=== PATIENT | female | born 1930 | race African-American/Black ===

== ENCOUNTER 2018-01-04 21:09 | Emergency (ER) | payer OTHER, MEDICARE ==
[~2018-01-04] VITALS: Ht 160 cm; Wt 38.1 kg
[~2018-01-04 21:09] MED LIST: ADVAIR 250-501 EACH INH; ALBUTEROL2.5 MG/31 INH; ASPIRIN81 M2 PO; AZITHROMYCIN 2250 MG PO; CEFTIN 250 MG250 MG PO; CEPACOL SORE T1 EAC9 PO; DUONEB 2.5-0.5 M3 ML INH; FERROUS SULFAT325 M1 PO; IRON 21/7 TABL1 EACH PO; IRON325 PO; LEVAQUIN 500 M500 MG PO; LEVAQUIN PO; LOPRESSOR25 PO; METOPROLOL SUCC25 M1 PO; MOM PO; MUCINEX TA600 MG/TA1 PO; NORCO 5-325 TA1 EACH PO; NORVASC10 MG PO; PREDNISONE 10 M10 MG; PREDNISONE 20 M20 M1 PO; PREDNISONE 20 M20 MG PO; VALSARTAN-HCTZ1 EAC1 PO; VALSARTAN-HCTZ1 EAC2 PO; XOPENEX HF1 UDINHALE INH
[2018-01-04 22:22] VITALS: BP 141/60
== END 2018-01-04 22:23 | disposition home or self-care (01) ==
LOC: ER 21:09
DX: R04.0 Epistaxis (principal); I10 Essential (primary) hypertension; J43.9 Emphysema, unspecified; I67.1 Cerebral aneurysm, nonruptured; Z87.891 Personal history of nicotine dependence; Z87.01 Personal history of pneumonia (recurrent); Z88.8 Allergy status to other drugs, medicaments and biological substances

== ENCOUNTER 2018-06-06 11:11 | Inpatient (IN) | payer OTHER, MEDICARE ==
[~2018-06-06] VITALS: Ht 160 cm; Wt 37.6 kg
--- NOTE | ~2018-06-06 | D ---
[facility] [place] [address] DISCHARGE SUMMARY Name: CHAD DE LOS SANTOS Room #: 460-P [facility] IN M.R.#: [id number] Admission: 06/06/18 ������������������ Attend Phys: Familia Navarrete MD Discharge: 06/13/18 ������������������ Date of : 32 Report #: [id number] THIS REPORT FOR: //name// CC: Familia Navarrete DATE OF SERVICE: 06/13/2018 FINAL DIAGNOSES: 1. Chronic obstructive pulmonary disease exacerbation. 2. Hypertension. 3. Microcytic anemia. HOSPITAL COURSE: The patient was admitted with shortness of breath. She was treated for COPD exacerbation. X-rays did not show an infiltrate. She received nebulizer treatments, steroids, inhaled steroids and antibiotics. Screen for MRSA was negative. Blood pressure medicine was altered and adjusted accordingly. She was treated with physical therapy. She had a slow improvement during her stay with continued bronchospasm, wheezing and nonproductive congested cough. Gradually over the last 2-3 hospital days, she showed improvement. The wheezing diminished and her cough diminished. She was being screened for home oxygen. PHYSICAL EXAMINATION: GENERAL: On the day of discharge, she was awake and alert. VITAL SIGNS: Stable. LUNGS: Distant, but clear with no wheezing. HEART: Had regular sounds. ABDOMEN: Soft. Normoactive bowel sounds. EXTREMITIES: Showed no edema. LABORATORY DATA: Heme check of stool was negative x 1. DISPOSITION: She is discharged to home with regular diet and activity as tolerated, home health. Follow up with Dr. Recinos in 1-2 weeks. She will have Levaquin for 5 more days, prednisone burst and taper, albuterol nebulizer treatment q.i.d., Advair twice a day, Xopenex inhaler p.r.n. She is to stop losartan and amlodipine and just switch to metoprolol 50 mg twice a day. ��������������������������������������������� ���������������������������������������� By: ��������������������������������������������� 1321 [id number] Parviz Bateman MD /nt
[2018-06-06 11:12] VITALS: BP 106/44
[2018-06-06 11:55] LABS: ABSOLUTE NEUTROPHILS 4.7 thou/uL (1.4-8.2); BASOPHILS 1.3 % (0.0-2.0); EOSINOPHILS 2.3 % (0.0-3.0); HEMATOCRIT 31.9 % (37.0-47.0); HEMOGLOBIN 10.7 gm/dL (12.0-15.0); LYMPHOCYTES 10.5 % (24.0-44.0); MCH 24.9 pg (26.0-34.0); MCHC 33.7 g/dL (28.0-37.0); MCV 73.9 fL (80.0-100.0); PLATELET COUNT 307 thou/uL (150-400); POLYS 78.9 % (36.0-66.0); RBC 4.32 mil/uL (4.20-5.00); WBC 5.9 thou/uL (4.0-11.0)
[2018-06-06 12:07] LABS: ANION GAP 8 mmol/L (7-16); BUN 24 mg/dL (7-18); CALCIUM 10.1 mg/dL (8.5-10.1); CHLORIDE 96 mmol/L (98-107); CO2 31 mmol/L (21-32); CREATININE 1.3 mg/dL (0.6-1.0); GLUCOSE 139 mg/dL (74-106); POTASSIUM 4.6 mmol/L (3.5-5.1); SODIUM 135 mmol/L (136-145)
[2018-06-06 12:17] LABS: ALBUMIN 3.8 g/dL (3.4-5.0); SGOT 18 U/L (15-37); SGPT 19 U/L (30-65); TOTAL BILIRUBIN 0.5 mg/dL (<0.1-1.0); TOTAL PROTEIN 7.7 g/dL (6.4-8.2); TROPONIN-I <0.06 ng/mL (<0.06)
[2018-06-06] MEDS ORDERED: ADVAIR HFA 230M12 GM INH (13:09)
[2018-06-06] MEDS ORDERED: XOPENEX HFA15 GM INH (13:10)
[2018-06-06] MEDS ORDERED: LOSARTAN-HCTZ1 EACH PO (13:12)
[2018-06-06] MEDS ORDERED: ADVAIR 250-501 EACH INH (14:14)
--- NOTE | 2018-06-06 14:14 | EKG ---
[address] [address] ELECTROCARDIOGRAM REPORT Name: CHAD DE LOS SANTOS Room #: 170-8 ADM IN M.R.#: [id number] ������������������ Admission: 06/06/18 ������������������ Attend Phys: Familia Navarrete MD Discharge: ������������������ Date of : 32 Report #: [id number] ����������������������������������������������������������������� [id number] THIS REPORT FOR: //name// [facility] ED Test Date: 2018-06-06 Test Time: 11:44:03 Pat Name: CHAD DE LOS SANTOS Department: Room: 170 Gender: F Drapery Examiner: KKODIZZY : 1930 Requested By: Melany Terrell Order Number: [id number] MD: Jarred Nunez Measurements Intervals [place] Rate: 78 P: 87 RI: 118 QRS: 46 QRSD: 79 T: 55 QT: 361 QTc: 412 Interpretive Statements Sinus rhythm Borderline short RI interval RSR' in V1 or V2, right VCD or RVH Compared to ECG 04/18/2016 16:29:48 Right ventricular hypertrophy now present RSR' in V1 or V2 now present Electronically Signed On 06-06-2018 14:14:33 CDT by Jarred Nunez [email or web address] ��������������������������������������������� <ELECTRONICALLY SIGNED> ���������������������������������������� By: Jarred Nunez MD ��������������������������������������������� 06/06/18 1414 1144 1144 Jarred Nunez MD /EPI
[2018-06-06 16:38] VITALS: BP 103/45
[2018-06-06 17:03] VITALS: BP 110/50
--- NOTE | 2018-06-06 19:32 | NUR ---
Received pt from the ER, alert and oriented x 4 with a 2L of O2 via NC. Pt came up with a packed meal and tolerated diet well. Pt did mention that she cannot swallow pills and requested that all medication be crushed and placed in apple sauce. Pt also mentioned that in her last admission here, she was prescribed to have Boost drink in her diet. Admitted pt to the floor, kept comfortable, endorsed to the night nurse.
[2018-06-06 19:36] VITALS: BP 119/47
[2018-06-07 04:39] VITALS: BP 121/51
--- NOTE | 2018-06-07 05:29 | NUR ---
Assumed care at 1845. Pt resting in bed. Requested to have breathing treatments scheduled prn. O2 changed from 2L to 3L by RT. Pt denies pain. Has been having none productive cough. Denies chest pain. No identified needs at the moment. Call light within reach. Will continue to monitor.
[2018-06-07 07:58] VITALS: BP 134/48
--- NOTE | 2018-06-07 09:27 | H ---
[facility] [place] [address] HISTORY AND PHYSICAL Name: CHAD DE LOS SANTOS Room #: 460-P ADM IN M.R.#: [id number] Admission: 06/06/18 ������������������ Attend Phys: Familia Navarrete MD Discharge: ������������������ Date of : 32 Report #: [id number] THIS REPORT FOR: //name// CC: Familia Navarrete DATE OF SERVICE: 06/06/2018 CHIEF COMPLAINT: Shortness of breath. HISTORY OF PRESENT ILLNESS: The patient is an 88-year-old female with a history of COPD, came to the Emergency Room with shortness of breath. Symptoms have been progressing over the last 3-4 days with a congested cough. Today, she was having difficulty breathing and was more short of breath than even yesterday. She was mildly hypoxic on the time of presentation and mildly tachypneic. She denies any fever or chills. 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 PAST SURGICAL HISTORY: None. FAMILY HISTORY: Noncontributory. SOCIAL HISTORY: A [id number] history of smoking, but she quit several years ago. She is and lives with her at home. ALLERGIES: PHENOBARBITAL. MEDICATIONS: Lopressor 50 mg, iron, amlodipine 10 mg, Xopenex inhaler p.r.n., aspirin 81 mg, Advair 2 puffs b.i.d., Hyzaar 50/12.5 mg daily. REVIEW OF SYSTEMS: Denies fever, chills, chest pain, abdominal pain, nausea, vomiting, diarrhea, constipation, dysuria, syncope. OBJECTIVE: VITAL SIGNS: Temperature 36.3, pulse 93, respirations 19, blood pressure 106/44, O2 sat 93% on 2 liters. GENERAL: She is awake and alert, eating. She recognizes me. No distress. HEAD AND NECK: Unremarkable. LUNGS: Have expiratory rhonchi and wheezes, especially on the left. She is tachypneic. HEART: Regular, no murmur. ABDOMEN: Soft, normoactive bowel sounds. EXTREMITIES: No edema. NEUROLOGIC: Cranial nerves intact, alert and oriented x 4. [facility] [address] [address] HISTORY AND PHYSICAL Name: CHAD DE LOS SANTOS Room #: [address] [place] [address] IN ..#: [id number] Admission: 06/06/18 ������������������ Attend Phys: Familia Navarrete MD Discharge: ������������������ Date of : 32 Report #: [id number] LAB AND X-RAY: Reviewed. ASSESSMENT: 1. Chronic obstructive pulmonary disease exacerbation. 2. Hypertension. 3. Microcytic anemia. PLAN: Steroids, nebulized treatments and empiric antibiotics with mucolytics. Resume her usual home medications. Sequential compression devices for deep venous thrombosis prophylaxis. ��������������������������������������������� <ELECTRONICALLY SIGNED> ���������������������������������������� By: Parviz Bateman MD ��������������������������������������������� 06/07/18 0927 1347 1411 Parviz Bateman MD /sharri
[2018-06-07 14:17] VITALS: BP 121/44
--- NOTE | 2018-06-07 14:22 | NUR ---
PT ADMITTED RELATED TO COPD EXACERBATION. CM REVIEWED CART AND SPOKE WITH CARE TEAM. CM MET WITH PT AT BEDSIDE THIS DAY. PT IS A&O X4, CM ROLE INTRODUCED. PT INDICATED SHE LIVES IN A SENIOR APARTMENT WITH ELAVATOR ACCESS. PT INDICATED SHE HAS BEEN INDEPENDENT WITH GAIT AND ADLS EMERGENCY DEPARTMENT. PT INDICATED SHE HAD HH TWO YEARS AGO. PT INDICATED NO DME HISTORY. PT INDICATED SHE PLANS TO RETURN HOME ONCE MEDICALLY STABLE. CM TO FOLLOW INDICATED WITH DC PLANNING.
--- NOTE | 2018-06-07 17:03 | NUR ---
Assumed pt care this am with 3L of O2 via NC. Pt requested RT several times through out the day, pt had a strong non-productive cough. All medication needed to be crushed and mixed with her apple sauce. Fluid intake was encouranged through out the day. Pt is able to transfer from the bed to the commode with ease. Pt walked the halls slowly with a walker. Seen by Dr. Keys, 2 inhalers from home resumed, pt request this be at bedside since these are prn medication. POC followed.
[2018-06-07 19:45] VITALS: BP 139/45
[2018-06-08 03:35] VITALS: BP 125/43
--- NOTE | 2018-06-08 04:06 | NUR ---
PT DEMANDED IV TO COME OUT IV REMOVED NEW IV PUT IN PT RECIEVED 2 BREATHING TX DURING THE NIGHT PT USED CALL LIGHT EFFECTIVELY.
[2018-06-08 05:59] LABS: CALCIUM 8.8 mg/dL (8.5-10.1); CREATININE 1.5 mg/dL (0.6-1.0); POTASSIUM 4.4 mmol/L (3.5-5.1)
[2018-06-08 08:02] VITALS: BP 141/47
[2018-06-08 13:37] VITALS: BP 109/47
--- NOTE | 2018-06-08 18:49 | NUR ---
PT A&OX4, VSS, NO PAIN, NO SIGNS OF DISTRESS. NO C/O N/V/D, LUNGS CLEAR THIS AM, RECEIVING BX TX AND INHALER. FALL RISK PRECAUTIONS IN PLACE, WILL CONTINUE TO MONITOR.
[2018-06-08 19:37] VITALS: BP 126/48
[2018-06-08 23:08] VITALS: BP 179/69
--- NOTE | 2018-06-09 02:20 | NUR ---
PT AGITATED WITH THE STAFF AND ANGRY PT REFUSES TO VERBALIZE REASONS PT SLEPT MOST OF THE NIGHT AND DIDNT HAVE ANY COMPLAINTS OF PAIN.
[2018-06-09 04:56] VITALS: BP 135/54
[2018-06-09 07:27] VITALS: BP 142/57
[2018-06-09 13:44] VITALS: BP 162/72
--- NOTE | 2018-06-09 18:36 | NUR ---
PT A&OX4, VSS, DENIES PAIN. NO SIGNS OF DISTRESS, PT HAS RECEIVED BX TX Q4. PT HAS BEEN ASSISTED WITH PT AND OT. FALL PRECAUTIONS IN PLACE, WILL CONTINUE TO MONITOR.
[2018-06-09 20:10] VITALS: BP 150/66
[2018-06-10 04:55] LABS: HEMATOCRIT 27.8 % (37.0-47.0); HEMOGLOBIN 9.1 gm/dL (12.0-15.0); MCH 24.7 pg (26.0-34.0); MCHC 32.9 g/dL (28.0-37.0); RBC 3.7 mil/uL (4.20-5.00); RDW 17.8 % (10.5-14.5); WBC 12.1 thou/uL (4.0-11.0)
[2018-06-10 04:57] VITALS: BP 141/53
[2018-06-10 05:10] LABS: CALCIUM 8.9 mg/dL (8.5-10.1); CREATININE 1.2 mg/dL (0.6-1.0); POTASSIUM 4.2 mmol/L (3.5-5.1)
--- NOTE | 2018-06-10 05:31 | NUR ---
PROGRESS PT A/O X 4. VERY PLEASANT AND COOPERATIVE, HAS A FREQUENT STRONG COUGH SCANT AMOUNT OF SECRETIONS COUGHED UP. REMAINS ON 2 LITERS OF O2, LUNGS COARSE AND DIMINISHED IN BASES. UP WITH 1 TO BSC, GETS SOA WITH SMALL AMOUNTS OF ACTIVITY CONTINUE TO MONITOR.
[2018-06-10 08:01] VITALS: BP 148/56
--- NOTE | 2018-06-10 08:57 | NUR ---
ASSUMED CARE OF PT APPROX 0715, A&0X4, USES CALL LIGHT FOR NEEDS, DOES NOT USE ASSISTIVE DEVICE FOR AMBULATION. BED ALARM ON NONETHELESS, DENIES ANY PAIN, EVEN GENERALIZED. GOOD APPETITE. RA AT HOME, USING 1L CURRENTLY SATTING AT 98%, SPOKE WITH HER ABOUT REMOVING AND CHECKING SATS, SHE STATES PT DOES THAT WITH HER. ENCORUAGED HER TO USE CALL LIGHT FOR ANY NEEDS
[2018-06-10 14:36] VITALS: BP 125/47
--- NOTE | 2018-06-10 17:09 | NUR ---
IT PT IS MEDICALLY STABLE TO DC OVER THE WEEKEMD FAX REFERRAL TO [facility] AT . IF PT NEEDS HOME O2 CALL ROXY AT FAX ORDERS AND SCRIPT TO .
[2018-06-10 19:59] VITALS: BP 142/60
--- NOTE | 2018-06-11 02:50 | NUR ---
PROGRESS PT A/O X4, UP AD BRITTANY VOIDING QS, NO BM THIS SHIFT AWAITING STOOL SAMPLE. COUGH IS STILL FREQUENT AND NON PRODUCTIVE, LUNGS CLEAR BUT DIMINISHED. WEARING 2 LITERS O2 AT ALL TIMES. RT TREATMENTS CONTINUE. POSSIBLE DC HOME TOMORROW.
[2018-06-11 03:58] VITALS: BP 167/68
[2018-06-11 04:47] LABS: HEMATOCRIT 28.9 % (37.0-47.0); HEMOGLOBIN 9.6 gm/dL (12.0-15.0); MCH 24.9 pg (26.0-34.0); MCHC 33.1 g/dL (28.0-37.0); MCV 75.3 fL (80.0-100.0); RBC 3.84 mil/uL (4.20-5.00); RDW 17.6 % (10.5-14.5); WBC 13.1 thou/uL (4.0-11.0)
[2018-06-11 04:59] LABS: CALCIUM 8.7 mg/dL (8.5-10.1); CREATININE 1.3 mg/dL (0.6-1.0); POTASSIUM 4.6 mmol/L (3.5-5.1)
--- NOTE | 2018-06-11 06:32 | NUR ---
PATIENT SLEPT PART OF THE NIGHT. PATENT WAS ALERT AND ORIENTED X4. MEDS ARE CRISHED AND GIVEN WITH APPLESAUCE. PATIENT DOES NOT REQUIRE O2 PER RT BUT HAS IT ON FOR ACTIVITY. NO CURRNT COMPLAINTS OR CONCERNS. PATIENT IS PROGRESSING TOWARDS DC GOALS.
[2018-06-11 07:32] VITALS: BP 141/55
[2018-06-11 08:08] VITALS: BP 147/70
[2018-06-11 15:41] VITALS: BP 130/62
--- NOTE | 2018-06-11 19:31 | NUR ---
Assumed care of patient at 0700. Patient resting in bed, denies shortness of air or pain. Does have a very harsh cough, unable to produce much sputum. Incontinent with coughing. Started on SSI for blood sugar control. Had frustrations with nursing care, she is eager to be discharged. Remains on 2L NC. Continue to monitor.
[2018-06-11 19:32] VITALS: BP 141/55
[2018-06-12 04:35] VITALS: BP 137/49
[2018-06-12 04:56] LABS: HEMATOCRIT 29.8 % (37.0-47.0); HEMOGLOBIN 9.6 gm/dL (12.0-15.0); MCH 24.5 pg (26.0-34.0); MCHC 32.3 g/dL (28.0-37.0); MCV 75.7 fL (80.0-100.0); RBC 3.94 mil/uL (4.20-5.00); RDW 17.3 % (10.5-14.5); WBC 16.9 thou/uL (4.0-11.0)
[2018-06-12 05:14] LABS: CALCIUM 8.9 mg/dL (8.5-10.1); CREATININE 1.2 mg/dL (0.6-1.0); POTASSIUM 4.8 mmol/L (3.5-5.1)
--- NOTE | 2018-06-12 06:16 | NUR ---
PATIENT IS ALERT AND ORIENTED X 4. PATIENT WAS ABLE TO GET SOME SLEEP THIS SHIFT. BREATHING TREATMENT AND O2 VIA NASAL CANNULA CONTINUED. PT HAS SOME STRESS INCONTINENCE WITH COUGH. PT'S COUGH IS STILL PERSISTENT, AND COUGH IS NOT PROSUCTIVE. PATIENT IS PROGRESSING TOWARDS DISCHARGE GOALS.
[2018-06-12 07:13] VITALS: BP 126/61
[2018-06-12 13:46] VITALS: BP 146/57
--- NOTE | 2018-06-12 17:09 | NUR ---
Received awake on bed. Due medications given as prescribed, on regular nebulizations. With SL at right forearm. With oxygen at 2lpm via nc. On blood sugar monitoring, pre-breakfast- 175mg/dl, 3 units given, pre-lunch- 174mg/dl, 3 units given, pre-dinner- 232mg/dl, 4 units given. For exercise oximetry, RT informed, no discharge plans yet but will do it; Patient put on room air by RT. Able to use bedside commode with standby assist, opened bowels today. Visited by relatives today. Alert and oriented x 4. On heart monitor. With non productive cough, on regular nebulizations.
--- NOTE | 2018-06-12 18:05 | NUR ---
Day shift Nursing notes- Blood sugar of 232 pre-dinner, 4 units insulin given as prescribed. Patient had snacks prior as verbalized before I administered the insulin.
[2018-06-12 20:10] VITALS: BP 143/46
--- NOTE | 2018-06-13 04:18 | NUR ---
PATIENT IS ALERT AND ORIENTED X4. PATIENT WAS ABLE TO GET COMFORTABLE AND SLEEP PART OF THE SHIFT. PT STILL HAS A NON PRODUCTIVE COUGH. PT HAS SOME STRESS INCOTINENCE WITH HER COUGHS. PATIENT HAS GOOD O2 SATURATION ON ROOM AIR SO NC O2 WAS DISCONTINUED BY RT. PATIENT IS PROGRESSING TOWARDS DISCHARGE GOALS.
[2018-06-13 08:00] VITALS: BP 143/50
--- NOTE | 2018-06-13 11:47 | NUR ---
Nutrition: Seen for F/U. Pt reports appetite is good with 80-100% intake. Current wt 95 lbs, may be slightly inaccurate but up from 06/06 wt of 83 lbs. On carb controlled diet, BG 152-232. No hx of diabetes, on methylprednisolone. Requested Ensure x3 daily. Will order Ensure x2 daily plus glucerna x1 daily due to elevated BG. Food preferences taken. Low nutrition risk.
[2018-06-13] MEDS ORDERED: LEVAQUIN 500 M500 M2 PO (12:34)
[2018-06-13] MEDS ORDERED: PREDNISONE 20 M20 MG PO (12:35)
[2018-06-13] MEDS ORDERED: LOPRESSOR25 PO (12:36)
[2018-06-13] MEDS ORDERED: IPRAT-ALBUT 0.5-3 ML INH (12:37)
[2018-06-13 14:02] VITALS: BP 143/50
[2018-06-13 15:00] VITALS: BP 147/43
--- NOTE | 2018-06-13 17:05 | NUR ---
PT TO DISCHARGE HOME THIS DAY WITH [facility] PT, OT, AND NURSE. PT DIDN'T QUALIFY FOR HOME O2. A NEBULIZER WAS ORDRED FOR PT THROUGH [facility] AND IT WILL BE DELIVERED TO HER HOME UPON DC. NO OTHER CM INTERVENTION INDICATED AT THIS TIME. CASE CLOSED.
[2018-06-13 17:07] VITALS: BP 143/50
[2018-06-13 21:05] LABS: ADENOVIRUS Negative (Negative); INFLUENZA A Negative (Negative); INFLUENZA B Negative (Negative); METAPNEUMOVIRUS Negative (Negative); PARAINFLUENZA 1 Negative (Negative); PARAINFLUENZA 2 Negative (Negative); PARAINFLUENZA 3 Negative (Negative); RHINOVIRUS Positive (Negative); RSV A Negative (Negative); RSV B Negative (Negative)
== END 2018-06-13 18:23 | disposition home health service (06) | DRG 190 ==
LOC: ER 11:11 → EROBS 13:41 → 4W 13:41 → ENTRNSPT 06-13 17:03 → 4W 06-13 18:23
PROVIDERS: Internal Medicine Geriatric Medicine; Nurse Practitioner Family; ADMIT Internal Medicine
DX: J44.1 Chronic obstructive pulmonary disease with (acute) exacerbation (principal); E43 Unspecified severe protein-calorie malnutrition; Z68.1 Body mass index [BMI] 19.9 or less, adult; D50.9 Iron deficiency anemia, unspecified; I10 Essential (primary) hypertension; Z88.8 Allergy status to other drugs, medicaments and biological substances; Z87.891 Personal history of nicotine dependence; Z79.2 Long term (current) use of antibiotics; Z79.899 Other long term (current) drug therapy
CPT/HCPCS: 10045

== ENCOUNTER 2018-08-28 11:42 | Inpatient (IN) | payer OTHER, MEDICARE ==
[~2018-08-28] VITALS: Ht 160 cm; Wt 40.8 kg
--- NOTE | ~2018-08-28 | H ---
[facility] [place] [address] HISTORY AND PHYSICAL Name: CHAD DE LOS SANTOS Room #: 213-P ADM IN M.R.#: [id number] Admission: 08/28/18 ������������������ Attend Phys: Familia Navarrete MD Discharge: ������������������ Date of : 32 Report #: [id number] THIS REPORT FOR: //name// CC: Familia Navarrete DATE OF SERVICE: 08/28/2018 HISTORY OF PRESENT ILLNESS: An 88-year-old female with COPD and shortness of breath. HISTORY OF PRESENT ILLNESS: This patient has become more congested over the last couple of days with no fevers, chills or sweats, but just increasing shortness of breath and presented to the Emergency Room and had little infiltrate on chest x-ray and with her history of COPD was subsequently admitted. PAST MEDICAL HISTORY: Noteworthy for hypertension. She has a history of a cerebral aneurysm with coiling. Previously, she has chronic anemia, takes iron. Underlying hypertension. MEDICATIONS: List includes ferrous sulfate, aspirin, metoprolol, Advair. ALLERGIES: She has no known allergies. FAMILY HISTORY: Noncontributory. SOCIAL HISTORY: She is still functional. No smoking or alcohol intake. REVIEW OF SYSTEMS: No specific cardiac, GI, or complaints. PHYSICAL EXAMINATION: GENERAL: Shows her in no distress. She is lying in bed with O2 in place. Able to give me an accurate history. HEENT: Otherwise, negative. NECK: Supple, without thyromegaly or adenopathy. CHEST: Coarse with minimal expiratory wheezing. CARDIOVASCULAR: Showed a regular rhythm without murmur. ABDOMEN: Soft and nontender, without hepatosplenomegaly. EXTREMITIES: Negative. LABORATORY PARAMETERS: Reviewed. ASSESSMENT: This is an 88-year-old female with acute exacerbation of chronic obstructive pulmonary disease, probably mostly on the basis of bronchitis, possibly an early pneumonia, but certainly no signs of toxicity. [facility] [address] [place] [address] HISTORY AND PHYSICAL Name: CHAD DE LOS SANTOS Room #: 213-[facility]#: [id number] Admission: 08/28/18 ������������������ Attend Phys: Familia Navarrete MD Discharge: ������������������ Date of : 32 Report #: [id number] PLAN: We will start bronchodilators, prednisone and Rocephin and hopefully she can improve in the next day or two. ��������������������������������������������� ���������������������������������������� By: ��������������������������������������������� 1205 1213 Jose Maria Amaya MD /nt
[~2018-08-28 11:42] MED LIST changes: +ADVAIR HFA 230M12 GM INH; +IPRAT-ALBUT 0.5-3 ML INH; +LEVAQUIN 500 M500 M2 PO; +LOSARTAN-HCTZ1 EACH PO; +XOPENEX HFA15 GM INH
[2018-08-28 11:46] VITALS: BP 142/67
[2018-08-28 16:06] LABS: ABSOLUTE NEUTROPHILS 10.7 thou/uL (1.4-8.2); BASOPHILS 0.5 % (0.0-2.0); EOSINOPHILS 1.2 % (0.0-3.0); HEMATOCRIT 30.5 % (37.0-47.0); HEMOGLOBIN 9.9 gm/dL (12.0-15.0); LYMPHOCYTES 11.1 % (24.0-44.0); MCH 25.2 pg (26.0-34.0); MCHC 32.3 g/dL (28.0-37.0); MCV 78.1 fL (80.0-100.0); MONOCYTES 9.4 % (1.0-8.0); PLATELET COUNT 410 thou/uL (150-400); POLYS 77.8 % (36.0-66.0); RBC 3.91 mil/uL (4.20-5.00); RDW 16.3 % (10.5-14.5); WBC 13.8 thou/uL (4.0-11.0)
[2018-08-28] MEDS ORDERED: COZAAR 25 MG TA25 M1 PO (16:49)
[2018-08-28 16:50] LABS: ANION GAP 7 mmol/L (7-16); BUN 33 mg/dL (7-18); CALCIUM 9.8 mg/dL (8.5-10.1); CHLORIDE 96 mmol/L (98-107); CO2 29 mmol/L (21-32); CREATININE 1.1 mg/dL (0.6-1.0); GLUCOSE 166 mg/dL (74-106); POTASSIUM 3.7 mmol/L (3.5-5.1); SODIUM 132 mmol/L (136-145)
[2018-08-28 17:00] LABS: ALBUMIN 2.4 g/dL (3.4-5.0); SGOT 20 U/L (15-37); SGPT 17 U/L (30-65); TOTAL BILIRUBIN 0.4 mg/dL (<0.1-1.0); TROPONIN-I <0.06 ng/mL (<0.06)
[2018-08-28 18:01] VITALS: BP 166/65
[2018-08-28 20:25] VITALS: BP 157/80
[2018-08-29 00:30] VITALS: BP 136/58
--- NOTE | 2018-08-29 03:13 | NUR ---
PT ADMITED FROM ED AROUND 1930, HERE FOR SOA AT HOME FOR ABOUT 5 DAYS-PT STATES. ASSESSMENT CHARTED. VSS. ADMISSION COMPLETE. PT REQUESTED BREATHING TREATMENTS STATED LUNGS FELT TIGHT. CALL PLACED TO PHYSICIAN FOR TREATMENTS AND TO RESTART MEDS. ORDERS GIVEN FOR BREATHING TREATMENTS PER EMAR. ABX AND FLUIDS PER EMAR. PT STEADY TO BATHROOM. PRODUCTIVE LOOSE COUGH, 2L NC. WILL CONTINUE TO MONITOR AND WITH POC.
[2018-08-29 03:57] VITALS: BP 140/71
[2018-08-29 07:26] VITALS: BP 127/56
--- NOTE | 2018-08-29 08:10 | EKG ---
[address] [place] [address] ELECTROCARDIOGRAM REPORT Name: CHAD DE LOS SANTOS Room #: 213-P ADM IN M.R.#: [id number] ������������������ Admission: 08/28/18 ������������������ Attend Phys: Familia Navarrete MD Discharge: ������������������ Date of : 32 Report #: [id number] ����������������������������������������������������������������� [id number] THIS REPORT FOR: //name// [facility] ED Test Date: 2018-08-28 Test Time: 15:27:24 Pat Name: CHAD DE LOS SANTOS Department: Room: [facility] Gender: F Oven Tender: rivka : 1930 Requested By: Amina Platt Order Number: [id number] MD: Seng Anderson Measurements Intervals [place] Rate: 102 P: 79 ND: 117 QRS: 38 QRSD: 97 T: 65 QT: 360 QTc: 469 Interpretive Statements Sinus tachycardia Atrial premature complexes Abnormal R-wave progression, early transition Borderline T abnormalities, anterior leads Compared to ECG 06/06/2018 11:44:03 Atrial premature complex(es) now present T-wave abnormality now present Electronically Signed On 08-29-2018 8:09:57 CDT by Seng Anderson [email or web address] ��������������������������������������������� <ELECTRONICALLY SIGNED> ���������������������������������������� By: Seng Anderson MD, [facility] ��������������������������������������������� 08/29/18 0809 1527 1527 Seng Anderson MD, [facility] /EPI
--- NOTE | 2018-08-29 11:03 | NUR ---
Assess due to low BMI of 15.1. Admit with SOB, hx copd. Pt states lives at home. Appetite has been good but has had reported wt loss since 11/2017 of ~30 lb unintentional. Likes to eat 6 small meals per day and uses Ensure up to 3x daily-will order. Able to voice food preferences and eager to have lunch today. Wt loss likely due to due COPD. Low nutrition risk.
[2018-08-29 11:16] VITALS: BP 140/55
--- NOTE | 2018-08-29 14:13 | NUR ---
ASSESSMENT DOCUMENTED. PT ALERT AND ORIENTED. RT TREATMENT PROVIDED ORDERED. SEEN BY DR. RILEY CASTANEDA. ORDERS NOTED. IV ABX AND PRN COUGH MEDICINE GIVEN. WILL CONTINUE TO MONITOR.
[2018-08-29 19:39] VITALS: BP 136/56
--- NOTE | 2018-08-30 03:31 | NUR ---
ASSESSMENT CHARTED. VSS. PT SOA WITH EXCERTION, PRN BREATHING TREATMENTS AND COUGH MEDS PER EMAR. 2 L NC. NO VOMITING SINCE SHIFT CHANGE, COUGH IMPROVED FROM PREVIOUS NIGHT. ST BY TO BATHROOM.SLEEPING WELL AT THIS TIME. WILL CONTINUE TO MONITOR AND WITH POC.
[2018-08-30 05:09] VITALS: BP 151/54
[2018-08-30 07:35] VITALS: BP 138/49
[2018-08-30 11:40] VITALS: BP 112/49
[2018-08-30 12:30] LABS: HEMATOCRIT 29.7 % (37.0-47.0); HEMOGLOBIN 9.8 gm/dL (12.0-15.0); MCH 25.7 pg (26.0-34.0); MCHC 33.1 g/dL (28.0-37.0); MCV 77.7 fL (80.0-100.0); PLATELET COUNT 421 thou/uL (150-400); RBC 3.82 mil/uL (4.20-5.00); RDW 16.2 % (10.5-14.5); WBC 11.8 thou/uL (4.0-11.0)
[2018-08-30 12:43] LABS: CALCIUM 8.7 mg/dL (8.5-10.1); POTASSIUM 5.4 mmol/L (3.5-5.1)
[2018-08-30 13:21] LABS: ABSOLUTE NEUTROPHILS 10.9 thou/uL (1.4-8.2); ANISOCYTOSIS 1+
[2018-08-30 15:25] VITALS: BP 114/57
--- NOTE | 2018-08-30 15:43 | NUR ---
PT ALERT AND ORIENTED. VSS. RECEIVED PRN PAIN MED FOR ABD PAIN WITH PARTIAL RELIEF. PRN COUGH MED GIVEN. SEEN BY DR. VELASCO. ORDERS NOTED. NO CONCERNS AT THIS TIME. WILL CONTINUE TO MONITOR.
[2018-08-30 21:48] VITALS: BP 148/61
[2018-08-31 03:30] VITALS: BP 142/59
--- NOTE | 2018-08-31 04:09 | NUR ---
ASSESSMENT CHARTED. VSS. PT DENIES AB PAIN, SOA, N/V, DIZZINESS. 2L NC. LUNGS CLEAR WITH FAINT WHEEZYS. SLEEPING BETTER THAN PREVIOUS NIGHT. PRODUCTIVE COUGH. WILL CONTINUE TO MONITOR AND WITH POC.
[2018-08-31 07:23] VITALS: BP 157/72
[2018-08-31 11:11] VITALS: BP 168/79
--- NOTE | 2018-08-31 16:00 | NUR ---
PT ALERT AND ORIENTED. VSS. REPORT HAVING SOME ABD DISCOMFORT. HAD LARGE BM THIS SHIFT. SEEN BY DR. VELASCO. ORDERS NOTED. WILL CONTINUE TO MONITOR.
[2018-08-31 16:19] VITALS: BP 146/65
--- NOTE | 2018-08-31 16:38 | NUR ---
met with patient who reports she resides in [facility] with elevator. She has walker/cane at home but does not use. She uses the bus for transportation. She cont to work at [employer] but not working until middle of Sep. She reports she rec HH care from [facility]. They serviced in May. patient agreeable to HH at [place] if needed. Left message for son. patient currently on oxygen but does not have at home. Therapy evals in process.
[2018-08-31 19:53] VITALS: BP 173/71
[2018-09-01] VITALS (7 sets, daily range): BP systolic 141–187; BP diastolic 54–91
--- NOTE | 2018-09-01 03:07 | NUR ---
ASSUMED PT CARE AT 1900. PT A/OX4, VITAL SIGNS STABLE, ASSESSMENT CHARTED. ABDOMINAL PAIN ADEQUATELY MANAGED WITH PAIN MEDICATION. NO COMPLAINTS OF SOB. 2L02 MAINTAINED. RESTED WELL THROUGH THE NIGHT. PROGRESSING TOWARD PLAN OF CARE. WILL CONTINUE TO MONITOR.
--- NOTE | 2018-09-01 14:51 | NUR ---
PT ALERT AND ORIENTED. HAD HIGH BP THIS AM. DR. VELASCO AWARE. ORDERS NOTED. EVALUATED BY PT AND OT. AMBUALTED X1 THIS SHIFT. REPORT FEELING MUCH BETTER. IV ABX GIVEN. WILL CONTINUE TO MONITOR.
--- NOTE | 2018-09-01 16:40 | NUR ---
[facility] notified of possible dc home tomorrow. They can accept the pt for readmission. Weaning off o2 and working with therapy today. Pt declined therapy suggestin for a FWW. Will follow.
[2018-09-02 04:34] VITALS: BP 157/63
[2018-09-02 04:55] LABS: HEMATOCRIT 32.7 % (37.0-47.0); HEMOGLOBIN 10.9 gm/dL (12.0-15.0); MCH 25.8 pg (26.0-34.0); MCHC 33.2 g/dL (28.0-37.0); MCV 77.8 fL (80.0-100.0); RBC 4.2 mil/uL (4.20-5.00); RDW 15.9 % (10.5-14.5)
[2018-09-02 05:06] LABS: POTASSIUM 4.9 mmol/L (3.5-5.1)
--- NOTE | 2018-09-02 05:14 | NUR ---
PT RESTING IN BED, APPEARS TO BE SLEEPING. PT C/O EARLY ON IN SHIFT OF STOMACH CRAMPING BUT RESOLVED WITH SOME PRN MEDICATION. PT REMAINS ON 2L NC. POSSIBLY HOME WITH HH TODAY
[2018-09-02 08:06] VITALS: BP 159/71
--- NOTE | 2018-09-02 16:26 | NUR ---
No weekend dc anticipated per the attending. [facility] notified. They are following along and can resume hh services at pr. Will follow.
--- NOTE | 2018-09-02 17:17 | NUR ---
ASSUMED ACRE @ 0700. PT ALERT AND ORIENTED. REPORT HAVING SOME STOMACH DISCOMFORT. PRN ABD PAIN MED GIVEN WITH PARTIAL RELIEF. PARTICIPATED IN PT AND OT. PLAN TO BE DISCHARGE ON MODAY WITH [facility].H. NO CONCERNS AT THIS TIME. WILL CONTINUE TO MONITOR.
[2018-09-02 20:42] VITALS: BP 137/54
--- NOTE | 2018-09-03 03:15 | NUR ---
ASSESSMENT DOCUMENTED.PT BEEN RESTING IN NO ACUTE DISTRESS.VSS.ON O2 AT 2LITERS,SATS ADEQUATE.DENIES N/V OR ABD CRAMPING.CONTINUES TO HAVE CONGESTED COUGH.ON IV ANTIBIOTIC,TOLERATING.POSSIBLE DISCHARGE ON WEDNESDAY.WILL CONT TO MONITOR PER POC.
[2018-09-03 05:29] VITALS: BP 144/49
[2018-09-03 07:14] VITALS: BP 144/62
[2018-09-03 11:17] VITALS: BP 139/75
[2018-09-03 15:04] VITALS: BP 141/58
--- NOTE | 2018-09-03 15:12 | NUR ---
VSS REAMINS NSR 80-100, LUNGS DIMINISHED, O2 SAT RA IS 94%, APPETITE GOOD TODAY, TAKING IN SUPPLEMENTS. TOLERATING THIN LIQUIDS AND MECHANICAL CHOPPED DIET, UP IN CHAIR AND TOLERATED WELL, STEADY ON FEET WITH CONTACT GUARD ASSIST. WILL CONTINUE TO MONITER AND CARE FOR PT PER PLAN OF CARE
[2018-09-03 19:57] VITALS: BP 131/58
[2018-09-04 03:58] VITALS: BP 124/64
--- NOTE | 2018-09-04 05:46 | NUR ---
RECEIVED PT'S CARE AT 1922; PT. ON BED; UPSET BECAUSE CALL LIGHT WAS NOT ANSWER ON A TIME; DURING ASSESSMENT PT. CALM; COOPERATIVE; NO C/O PAIN; GUAIFENESIN PO CHANGED TO SYRUP DUE TO NOT ABLE TO BE CRUSHED; AT MIDNIGHT PT. C/O SOB; ST. SIDDIQI OFFER PRN BREATHING TREATMENTS; NOT PRN BREATHING TREATMENT; WILL PASS ON REPORT; O2 2L APPLIED AT MIDNIGHT DUE TO 02 89% ON RA WHILE SLEEPING; ABLE TO REST THROUGH THE NIGHT WITH EYES CLOSED; ASSESSMENT CHARGED; FOLLOWING POC; MONITORING; WILL PASS ON REPORT.
[2018-09-04 07:55] VITALS: BP 138/57
[2018-09-04 11:32] VITALS: BP 128/46
--- NOTE | 2018-09-04 15:38 | NUR ---
ASSUMED CARE @ 0700. ASSESSMENT CHARTED. PT PLEASANT AND COOPERATIVE WITH CARES. STILL COUGHING. SHEDULED COUGH MEDICINE GIVEN WITH PARTIAL RELIEF. NO CARDIAC OR RESPIRATORY DISTRESS NOTED. WILL CONTINUE TO MONITOR.
[2018-09-04 16:30] VITALS: BP 118/43
[2018-09-04 19:30] VITALS: BP 125/54
[2018-09-05 04:00] VITALS: BP 150/71
[2018-09-05 04:47] LABS: HEMATOCRIT 29.5 % (37.0-47.0); HEMOGLOBIN 9.6 gm/dL (12.0-15.0); MCH 25.4 pg (26.0-34.0); MCHC 32.5 g/dL (28.0-37.0); MCV 78.2 fL (80.0-100.0); RBC 3.78 mil/uL (4.20-5.00); RDW 16.4 % (10.5-14.5); WBC 18.2 thou/uL (4.0-11.0)
[2018-09-05 04:53] LABS: CREATININE 1.1 mg/dL (0.6-1.0)
--- NOTE | 2018-09-05 05:19 | NUR ---
RECEIVED PT'S CARE AT 1928; PT. ON BED; AOX4; DURING ASSESSMENT NO C/O PAIN; REQUESTED LUNCH BOX; ST. "I AM HUMGRY"; INFORMED ABOUT MECHANICAL SOFT DIET; ST. UNDERSTANDING; ST. "I USE MY DENTURES TO EAT NOW"; HS MEDICATION GIVEN; AT [address] NOT ABLE TO SLEEP; "MAYBE BECAUSE I AM GOING HOME"; REQUESTED DECAF COFFEE; INFORMED THE HOUR; ST. "I KNOW"; COFEE GIVEN; CALLS APROPIATELY; ASSESSMENT CHARGED; FOLLOWING POC; MONITORING; WILL PASS ON REPORT.
[2018-09-05 07:45] VITALS: BP 158/53
--- NOTE | 2018-09-05 11:52 | NUR ---
Followup: appetite is good and pt enjoys the Ensure Enlive supplements. Able to state food preferences. Asking for some foods not allowed on [facility] soft diet-ST is following and defer diet order to ST. BG elevated with steroids however pt does not want to change to glucerna shake supplements. Continue Ensure Enlive for now. Wt up 2 lb. Remains low nutrition risk
[2018-09-05 12:15] VITALS: BP 150/59
--- NOTE | 2018-09-05 14:56 | NUR ---
ASSESSMENT CHARTED. PT ALERT AND ORIENTED WITH FORGETFULNESS. DENIED HAVING PAIN OR DISCOMFORT. UP IN THE CHAIR THIS SHIFT. RT TREATMENT PROVIDED ORDERED. SAT ABOVE 90% ON RA. SEEN BY DR VELASCO. NO NEW ORDERS. PLAN TO BE DISCHARGE IN AM. WILL CONTINUE TO MONITOR.
[2018-09-05 16:14] VITALS: BP 144/56
[2018-09-05 20:27] VITALS: BP 160/52
--- NOTE | 2018-09-06 04:09 | NUR ---
ASSESSMENTS CHARTED. PATIENT CURRENTLY ON ANTIBIOTICS FOR PNEUMONIA. PATIENT ON MECH. ALT DIET DUE TO POSSIBLE ASPIRATION. LUNGS ARE STILL CONGESTED. PATIENT ATE TURKEY SANDWICH LAST NIGHT THAT WAS CUT UP. SHE BELIEVES SHE IS GOING HOME TODAY.
[2018-09-06 04:36] VITALS: BP 148/75
[2018-09-06 05:48] LABS: HEMATOCRIT 31.4 % (37.0-47.0); HEMOGLOBIN 10.2 gm/dL (12.0-15.0); MCH 25.5 pg (26.0-34.0); MCHC 32.4 g/dL (28.0-37.0); MCV 78.7 fL (80.0-100.0); RBC 3.99 mil/uL (4.20-5.00); RDW 16.9 % (10.5-14.5); WBC 20.8 thou/uL (4.0-11.0)
[2018-09-06 05:52] LABS: CALCIUM 8.6 mg/dL (8.5-10.1)
[2018-09-06 07:31] VITALS: BP 138/82
[2018-09-06] MEDS ORDERED: COZAAR100 MG PO (10:06)
[2018-09-06] MEDS ORDERED: AZITHROMYCIN 2250 MG PO (10:08)
[2018-09-06] MEDS ORDERED: PREDNISONE 10 M10 MG PO (10:08)
[2018-09-06] MEDS ORDERED: CEFDINIR300 MG PO (10:09)
--- NOTE | 2018-09-06 10:44 | NUR ---
NOTIFIED DOLORES AT [facility] THAT PT DISHARGING TODAY TO HOME AND SHE WILL NOTIFY PT TIME OF VISITS.
[2018-09-06 11:12] VITALS: BP 133/51
[2018-09-06 11:32] VITALS: BP 141/68
--- NOTE | 2018-09-06 13:02 | NUR ---
NOTIFIED DR VELASCO THAT THERE WAS NO DATA COLLECTED ON THE NOC OX OVERNIGHT. HE SAID TO CANCEL IT AND IF THE PATIENT NEEDED A STUDY DONE THEY WOULD ORDER IT FROM THE COMPANY
--- NOTE | 2018-09-06 14:17 | NUR ---
ASSUMED CARE AT SHIFT CHANGE ALERT AND ORIENTED X4. SR ON THE MOBNITOR AND VSS. MEDICATION AND DISCHARGE INSTRUCTIONS GIVEN AND PATIENT DISCHARGED HOME.
[2018-09-06 14:20] VITALS: BP 141/68
--- NOTE | 2018-09-06 14:20 | NUR ---
patient to ct home with HH. She prefers [facility] as she has rec [facility] in past. They are accepting. Patient requests for [facility] community resources. Discussed HBCR she needs medicaid then referral. She does not believe she quelifies for dc medicaid but [facility] can send for review. No further needs
--- NOTE | 2018-09-09 11:15 | D ---
[facility] [place] [address] DISCHARGE SUMMARY Name: CHAD DE LOS SANTOS Room #: 213-P [place] [facility] IN M.R.#: [id number] Admission: 08/28/18 ������������������ Attend Phys: Familia Navarrete MD Discharge: 09/06/18 ������������������ Date of : 34 Report #: [id number] THIS REPORT FOR: //name// CC: Familia Navarrete FINAL DIAGNOSES: 1. Community-acquired pneumonia. 2. Chronic obstructive pulmonary disease exacerbation. 3. Hypertension. 4. Anemia of chronic disease. 5. Severe protein-calorie malnutrition. HOSPITAL COURSE: The patient was admitted from home with shortness of breath. She was diagnosed with pneumonia based on x-ray with right upper lobe infiltrate. Speech Therapy assessed her, and she passed a swallow study. There were no signs of aspiration. She was treated with empiric antibiotics. Blood cultures were negative. Sputum culture was not obtained before antibiotics. Zithromax was added along with increased doses of prednisone. This seemed to help her cough, congestion and wheezing. With the increased dose of prednisone, however, her white count did begin to elevate up to 18,000-20,000. However, she was not experiencing any fever, diarrhea, dysuria or other symptoms of new infection. In fact, with antibiotics, her respiratory status improved, and she was weaned off oxygen. Her cough and wheezing diminished as well. She participated with physical therapy, and I made a small adjustment to her antihypertensive regimen. PHYSICAL EXAMINATION: GENERAL: On the day of discharge, she was awake and alert, sitting up in bed, off oxygen. VITAL SIGNS: Temperature was 36.6, with pulse 85, respirations 18, blood pressure 138/82 and O2 sat 98% on room air. LUNGS: Clear with no wheezing. HEART: Had regular sounds. ABDOMEN: Soft. EXTREMITIES: Showed no edema. DISPOSITION: She is discharged to home with diet and activity as tolerated, home health with supervisor public health nursing, PT, OT. Follow up with Dr. Navarrete in 1-2 weeks. MEDICATIONS: Losartan 100 mg, prednisone taper off over 10 days, Zithromax for 7 days, Omnicef for 10 days. Continue Xopenex, aspirin, iron, Advair, DuoNeb and metoprolol 50 mg b.i.d. ��������������������������������������������� <ELECTRONICALLY SIGNED> ���������������������������������������� By: Parviz Bateman MD ��������������������������������������������� 09/09/18 1115 1014 1025 Parviz Bateman MD /nt
== END 2018-09-06 14:41 | disposition home health service (06) | DRG 193 ==
LOC: ER 11:42 → EROBS 18:30 → 2N 18:30 → ENTRNSPT 09-06 14:10 → EDTRNSPTSTS 09-06 14:20 → 2N 09-06 14:41
PROVIDERS: Internal Medicine Geriatric Medicine; Physician Assistant; ADMIT Internal Medicine
DX: J18.9 Pneumonia, unspecified organism (principal); E43 Unspecified severe protein-calorie malnutrition; Z68.1 Body mass index [BMI] 19.9 or less, adult; I10 Essential (primary) hypertension; J43.9 Emphysema, unspecified; R09.02 Hypoxemia; D63.8 Anemia in other chronic diseases classified elsewhere; Z87.891 Personal history of nicotine dependence; Z79.82 Long term (current) use of aspirin; Z79.51 Long term (current) use of inhaled steroids; Z88.8 Allergy status to other drugs, medicaments and biological substances; Z79.899 Other long term (current) drug therapy
CPT/HCPCS: 10081

== ENCOUNTER 2018-11-24 19:19 | Inpatient (IN) | payer OTHER, MEDICARE ==
[~2018-11-24] VITALS: Ht 160 cm; Wt 39.0 kg
[~2018-11-24 19:19] MED LIST changes: +CEFDINIR300 MG PO; +COZAAR 25 MG TA25 M1 PO; +COZAAR100 MG PO; +PREDNISONE 10 M10 MG PO
[2018-11-24 19:20] VITALS: BP 214/93
[2018-11-24 19:54] LABS: ABSOLUTE NEUTROPHILS 8.3 thou/uL (1.4-8.2); EOSINOPHILS 0.5 % (0.0-3.0); HEMATOCRIT 37.3 % (37.0-47.0); HEMOGLOBIN 12.2 gm/dL (12.0-15.0); LYMPHOCYTES 6.5 % (24.0-44.0); MCH 25.2 pg (26.0-34.0); MCHC 32.6 g/dL (28.0-37.0); MCV 77.1 fL (80.0-100.0); MONOCYTES 8.5 % (1.0-8.0); PLATELET COUNT 246 thou/uL (150-400); POLYS 83.5 % (36.0-66.0); RBC 4.84 mil/uL (4.20-5.00); RDW 17.5 % (10.5-14.5); WBC 9.9 thou/uL (4.0-11.0)
[2018-11-24 20:06] LABS: ANION GAP 10 mmol/L (7-16); BUN 23 mg/dL (7-18); CALCIUM 10.6 mg/dL (8.5-10.1); CHLORIDE 93 mmol/L (98-107); CO2 30 mmol/L (21-32); GLUCOSE 159 mg/dL (74-106); SODIUM 133 mmol/L (136-145)
[2018-11-24 20:16] LABS: ALBUMIN 3.8 g/dL (3.4-5.0); SGOT 17 U/L (15-37); SGPT 15 U/L (30-65); TOTAL BILIRUBIN 0.7 mg/dL (<0.1-1.0); TOTAL PROTEIN 7.9 g/dL (6.4-8.2); TROPONIN-I <0.06 ng/mL (<0.06)
[2018-11-24 21:38] VITALS: BP 191/158
[2018-11-24 23:51] VITALS: BP 169/65
[2018-11-25 03:53] VITALS: BP 156/79
[2018-11-25 07:18] VITALS: BP 149/55
--- NOTE | 2018-11-25 08:33 | NUR ---
PATINET IS ALERT AND ORIENTED. PATIENT IS SBA WITH WALKER. PATIENT LIBES AT HOME ALONE. PATIENT IS ON 2LNC FOR SOB (ROOMAIR IS BASELINE). PATIENT HAS SCDS FOR ELEVATED D-DIMER. PATINET IS NSR TO ST ON TELE. PATIENTS LBM WAS THE 3RD. PATIENT DENIES PAIN. PATIENT HAS A NON PRODUCTIVE COUGH. SPUTUM IS CLEAR THIN. PATIENT IS RESTING COMFORTABLY IN BED. WCM. PATIENT IS PROGRESSING TO GOALS.
--- NOTE | 2018-11-25 09:12 | NUR ---
Assess due to pt with low BMI 15.2. Admit with pneumonia. Pt has been chronically underweight for several years, likely due to hx COPD. Wts average 83-85 lb. Pt very pleasant this am, states food preferences, good appetite and likes to drink Ensure-will order. Low nutrition risk with appropriate nutrition interventions in place.
--- NOTE | 2018-11-25 10:26 | NUR ---
ASSESMENT: CM REVIEWED CHART AND MET WITH PATIENT AT THE BEDSIDE. PT WAS ADMITTED WITH PNEUMONIA. PT REPORTS SHE LIVES IN A SR APT ALONE. PT REPORTS SHE HAS AN ELEVATOR THAT TAKES HER TO HER APT BUT HAS THE OPTION TO USE STEPS. PT REPORTS SHE NORMALLY AMBULATES USING A WALKER AND ALSO HAS A CANE. PT REPORTS SHE DOES NOT WEAR OXYGEN AT HOME. PT STATES SHE HAS HAD [facility] IN THE PAST FOR HH. PT REPORTS SHE FEELS SHE WOULD BENEFIT FROM HH AGAIN AND WANTED REFERRAL SENT TO [facility]. CM SENT REFERRAL. PT REPORTS HER SON VANESA IS SUPPORTIVE AND LIVES IN TOWN AND DRIVES HER TO THE STORE OR TO [employer]. CM ATTEMPTED TO CALL VANESA BUT LEFT VM. CM WILL CONTINUE TO FOLLOW TO ASSIST NEEDED.
[2018-11-25 10:54] VITALS: BP 149/55
[2018-11-25 12:12] VITALS: BP 146/50
[2018-11-25 15:46] VITALS: BP 148/59
[2018-11-25 19:24] VITALS: BP 143/59
--- NOTE | 2018-11-25 21:16 | NUR ---
PATIENT ALERT AND ORIENTED AND PREVIOUS M/S RN. SON AT BEDSIDE MOST OF AFTERNOON. PATIENT COOPERATIVE WITH POC.
[2018-11-26 06:20] VITALS: BP 149/64
--- NOTE | 2018-11-26 07:38 | NUR ---
PROGRESS PT ALERT AND ORIENTED X 4 ABLE TO MAKE NEEDS KNOWN, LUNG SOUNDS COARSE AND HAS A NON PRODUCTIVE COUGH. RT TX'S CONTINUE, IV ANTIBIOTICS GIVEN ORDERED. PT DENIES PAIN. GUAFENSIN COUGH SYRUP GIVEN WITH EFFECT PT RESTED AFTER. SKIN C/D/I NO AREAS OF BREAKDOWN NOTED. VSS CONTINUE POC.
[2018-11-26 07:54] VITALS: BP 156/74
[2018-11-26 11:09] VITALS: BP 140/75
--- NOTE | 2018-11-26 13:38 | NUR ---
pt's assessment has done, pt is A&OX3, but pt is forgetful, pt is continuing IV abx, and o2 3-4 L/min/nc, pt gets up to chair with assist, pt has SOB with exertion, pt denies pain and n/v at this time.pt has slowly meeting care plan goals .
[2018-11-26 16:04] VITALS: BP 139/62
[2018-11-26 19:40] VITALS: BP 161/60
[2018-11-27] VITALS (7 sets, daily range): BP systolic 139–196; BP diastolic 54–89
--- NOTE | 2018-11-27 04:23 | NUR ---
ASSUMED PT CARE AT 1900 WITH NO SIGN OF DISTRESS NOTED IN PT. PT IS ALERT AND ORIENTED. NO FAMILY AT BEDSIDE. FALL PRECAUTION IN PT. ASSESSMENT COMPLETED AND CHARTED. SCHEDULED MEDS ADMNISTERED TO PT. PT TOLERATED PO INTAKE. PT DENIES ANY PAIN. VITAL SIGNS STABLE. CONTINUE TO MONITOR.
--- NOTE | 2018-11-27 13:13 | EKG ---
[address] [address] ELECTROCARDIOGRAM REPORT Name: CHAD DE LOS SANTOS Room #: 360- ADM IN M.R.#: [id number] Admission: 11/24/18 Attend Phys: Familia Navarrete MD Discharge: Date of : 34 Report #: [id number] THIS REPORT FOR: //name// [facility] ED Test Date: 2018-11-24 Test Time: 19:30:16 Pat Name: CHAD DE LOS SANTOS Department: Room: [facility] Gender: F Clinical Care Coordinator: JPato : 1930 Requested By: Harmony Amezcua Order Number: [id number] MD: Seng Anderson Measurements Intervals [place] Rate: 121 P: 75 VT: 114 QRS: 3 QRSD: 82 T: 52 QT: 311 QTc: 442 Interpretive Statements Sinus tachycardia with atrial premature complexes RSR' in V1 or V2, right VCD Compared to ECG 08/28/2018 15:27:24 No significant change was found Electronically Signed On 11-27-2018 13:13:47 CDT by Seng Anderson [email or web address] <ELECTRONICALLY SIGNED> By: Seng Anderson MD, FAC 11/27/18 1313 29 29 Seng Anderson MD, [facility] /EPI
--- NOTE | 2018-11-27 16:43 | NUR ---
PT is A&OX3, PT is continuing iv abx and breathing treatment, pt still has coughing ,pt's SOB has improved, pt's o2 is off , pt's o2sat keeps at 92-96% at room air, pt's vs are stable, pt gets up chair with assist, pt has slowly meet care plan goals at this time.
[2018-11-28 00:41] VITALS: BP 178/76
[2018-11-28 03:20] VITALS: BP 182/89
--- NOTE | 2018-11-28 04:33 | NUR ---
PATIENT IS ALERT AND ORIENTED. PATIENT IS ON 1LNC PER COMFORT. PATIENT WAS GIVEN BP FOR HTN. PATIENTS LBM WAS THE 6TH. PATIENT IS NSR ON TELE. PATIENT LIKES PILLS CRUSHED IN APPLE SAUCE. PATIENT MAY BE PENDING DISCHARGE TODAY. PATIENT DENIES PAIN. PATIENT IS RESTING COMFORTABLY IN BED. WCM. PATIENT IS PROGRESSING TO GOALS.
[2018-11-28 07:40] VITALS: BP 174/82
--- NOTE | 2018-11-28 07:51 | NUR ---
care of pt assumed this am @ ~0700. pt up to bsc, but encouraged to use bthrm today to increased endurance and strength as pt is hopeful for dc in next few days. pt concerned about her htn this early am, she states she is not stressed about anything but thought that the titration of her oxygen (as she does not wear oxygen at home) yesterday may have contributed to the htn. pt informed we will have medications to tx htn this am. pt up to chair for breakfast.
--- NOTE | 2018-11-28 12:41 | H ---
[facility] [place] [address] HISTORY AND PHYSICAL Name: CHAD DE LOS SANTOS Room #: 360-P ADM IN M.R.#: [id number] Admission: 11/24/18 Attend Phys: Familia Navarrete MD Discharge: Date of : 34 Report #: [id number] THIS REPORT FOR: //name// CC: Familia Navarrete CHIEF COMPLAINT: Shortness of breath. HISTORY OF PRESENT ILLNESS: The patient is an 88-year-old female with O2 dependent COPD who came to the ER with shortness of breath. Symptoms have been worsening for the last 4 days and she has been coughing thick yellow sputum. She denies any fever or chills. She had a similar hospitalization in August of this year when she was treated for COPD exacerbation and pneumonia. She currently is living in a situation where there is some construction and remodeling work going on at the complex and she may be exposed to some dust or particular dust that is contributing to symptoms. 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 PAST SURGICAL HISTORY: None. FAMILY HISTORY: Noncontributory. SOCIAL HISTORY: She has a [id number] history of smoking but has quit. No chronic alcohol use. ALLERGIES: PHENOBARBITAL. MEDICATIONS: Advair, aspirin, Xopenex, iron, DuoNeb, metoprolol, losartan. REVIEW OF SYSTEMS: Denies headache, chest pain, shortness of breath, abdominal pain, nausea, vomiting, diarrhea, constipation, dysuria, syncope. OBJECTIVE: VITAL SIGNS: Temperature 36.6, pulse 112, respirations 20, blood pressure 149/55, O2 sat 97% on 2 liters. GENERAL: She is awake and alert, in no distress. HEAD, NECK: Unremarkable. LUNGS: Distant breath sounds, but no wheezing. HEART: Regular. No murmur. ABDOMEN: Soft, normoactive bowel sounds. EXTREMITIES: No edema. NEUROLOGIC: Motor strength 4/5 throughout. LABORATORY DATA: Reviewed. CTA of the chest showed no PE. [facility] [address] [facility] [place] [address] HISTORY AND PHYSICAL Name: CHAD DE LOS SANTOS COLLEENChristopher [facility]: [facility].#: [id number] Admission: 11/24/18 Attend Phys: Familia Navarrete MD Discharge: Date of : 32 Report #: [id number] Chest x-ray suggested left lower lobe infiltrate. ASSESSMENT: 1. Community-acquired pneumonia. 2. Chronic obstructive pulmonary disease exacerbation. 3. Hypertension. 4. Emphysema. PLAN: She will be treated with steroids, nebulized treatments and empiric antibiotics along with her home medications, Lovenox for DVT prophylaxis. <ELECTRONICALLY SIGNED> By: Parviz Bateman MD 11/28/18 1241 1213 1246 Parviz Bateman MD /nt
--- NOTE | 2018-11-28 13:48 | NUR ---
ON-GOING ASSESSMENT: PTS BP IS ELEVATING, MAY BE DUE TO STEROIDS AND PT HAD MEDICATION CHANGES. CM WILL CONTINUE TO FOLLOW. [facility] IS FOLLOWING PATIENT.
[2018-11-28 16:00] VITALS: BP 120/66
[2018-11-28 19:13] VITALS: BP 158/67
[2018-11-29 04:14] VITALS: BP 151/71
--- NOTE | 2018-11-29 06:11 | NUR ---
ASSUMED CARE AT 1900. PT HAS CONGESTED COUGH WITH OCCASIONAL SPUTUM PRODUCTION; COARSE BUT CLEAR LUNG SOUNDS, STILL EASILY SOB WITH MINIMAL EXERTION AND MAINTAINING SATS ON 1L. DENIES PAIN OR NAUSEA. IV ABX INFUSED OVERNIGHT. HAS BEEN SR-ST, LOW 100'S AT START OF SHIFT DROPPING TO 80'S ONCE ASLEEP. POSSIBLE D/C HOME TODAY OR TOMORROW. NO OTHER CONCERNS, WILL CONTINUE TO MONITOR.
[2018-11-29 06:12] LABS: HEMATOCRIT 33.6 % (37.0-47.0); HEMOGLOBIN 10.8 gm/dL (12.0-15.0); MCH 24.9 pg (26.0-34.0); MCHC 32.1 g/dL (28.0-37.0); MCV 77.5 fL (80.0-100.0); RBC 4.34 mil/uL (4.20-5.00); RDW 16.5 % (10.5-14.5); WBC 12.6 thou/uL (4.0-11.0)
[2018-11-29 06:22] LABS: CALCIUM 8.5 mg/dL (8.5-10.1); CREATININE 0.9 mg/dL (0.6-1.0); POTASSIUM 4.2 mmol/L (3.5-5.1)
[2018-11-29 07:35] VITALS: BP 161/79
[2018-11-29 11:41] VITALS: BP 146/59
--- NOTE | 2018-11-29 13:32 | NUR ---
ON-GOING ASSESSMENT: PT IS SLOWLY PROGRESSING TOWARDS DISCHARGE GOALS AND CONTINUING TO WEAN STEROIDS. PT IS NOT MEDICALLY STABLE TODAY FOR DISCHARGE. [facility] IS FOLLOWING PATIENT. CM WILL CONTINUE TO FOLLOW TO ASSIST NEEDED.
[2018-11-29 15:05] VITALS: BP 147/70
--- NOTE | 2018-11-29 15:54 | NUR ---
I have reviewed the student's documentation.
[2018-11-29 19:41] VITALS: BP 187/80
[2018-11-29 22:28] VITALS: BP 182/87
[2018-11-30 04:05] VITALS: BP 188/66
--- NOTE | 2018-11-30 05:58 | NUR ---
ASSUMED CARE OF PATIENT AT 1900. VSS, EXCEPT BP IS ELEVATED. DR VELASCO NOTIFIED, ORDER OBTAINED FOR EXTRA DOSE OF METOPROLOL GIVEN, BP STILL ELEVATED AT 0400. DR VELASCO NOTIFIED, EARLY DOSE OF NORVASC GIVEN. BP REMAINS ELEVATED AT THIS TIME. NOT PROGRESSING TOWARDS POC GOALS.
[2018-11-30 06:07] VITALS: BP 185/85
[2018-11-30 07:14] VITALS: BP 179/77
--- NOTE | 2018-11-30 14:08 | NUR ---
ON-GOING ASSESSMENT: CM REVIEWED CHART. PTS STEROIDS WERE STOPPED DUE TO HTN. PT IS DECLINING REHAB AND WANTS TO GO HOME AT DISCHARGE. MEDICATIONS WERE ADJUSTED. CM WILL CONTINUE TO FOLLOW TO ASSIST NEEDED. [facility] CONTINUES TO FOLLOW PT.
[2018-11-30 15:19] VITALS: BP 148/63
--- NOTE | 2018-11-30 16:53 | NUR ---
ASSUMED CARE OF PATIENT AT 0700. PATIENT VITALS STABLE TODAY. PATIENT RECIEVED IV ANTIBIOTIC TODAY. PATIENT HAS BEEN HYPERTENSIVE AND HER BLOOD PRESSURE CAME DOWN SOME TODAY. PATIENT OXYGEN SATURATION DOING WELL ON 1 LITER OXYGEN.
--- NOTE | 2018-11-30 18:58 | NUR ---
ASSUMED CARE OF PT ON ARRIVAL TO UNIT AT APPROX 1815. PT ALERT AND ORIENTED X4. HYPERTENSIVE - PHYSICIAN AWARE. MEDS RECONCILED. WAITING FOR ORDERS. PLACED ON 8L NC. NO ACUTE DISTRESS. ANTICIPATING BLOOD GAS.
[2018-11-30 19:10] VITALS: BP 154/53
[2018-12-01 03:28] VITALS: BP 186/76
[2018-12-01 05:20] VITALS: BP 183/79
--- NOTE | 2018-12-01 05:30 | NUR ---
SLEPT MOST OF SHIFT. UP TO BEDSIDE COMODE WITH STANDBY ASSIST. WORKING ON GOALS AND PLAN OF CARE FOR NOC. BP ELEVATED THIS AM AT 183/79 SO METOPROLOL GIVEN. PROGRESSING SLOWLY TOWARDS DISCHARGE GOALS. DENIES COMPLAINTS OF PAIN OR SHORTNESS OF AIR. REMAINS ON RA. CONTINUE TO ASSES.
[2018-12-01 07:23] VITALS: BP 189/79
[2018-12-01] MEDS ORDERED: AMLODIPINE BESY10 MG PO (08:31)
[2018-12-01] MEDS ORDERED: CEFUROXIME500 MG PO (08:31)
[2018-12-01] MEDS ORDERED: LOPRESSOR50 PO (08:32)
[2018-12-01] MEDS ORDERED: COZAAR100 MG PO (08:32)
[2018-12-01] MEDS ORDERED: ROBITUSSIN100 MG/53 PO (08:32)
[2018-12-01 09:31] VITALS: BP 149/55
--- NOTE | 2018-12-01 10:20 | NUR ---
ASSUMED CARE OF PATIENT AT 0700. PATIENT OXYGEN SATURATION SATISFACTORY ON ROOM AIR PER RT, PHYSICIAN AWARE OF ELEVATED BLOOD PRESSURE AND SENDING PATIENT HOME WITH ADDITIONAL MEDICATION. NURSE PROVIDED PATIENT WITH DISCHARGE PACKET THAT INCLUDED STROKE AND MEDICATION EDUCATION. PATIENT STATED UNDERSTANDING OF MATERIAL AND HAS PRESCRIPTIONS IN HAND. PRESCRIPTIONS WERE FAXED TO PATIENT'S PHARMACY WELL. PATIENT STATED THAT HER WAY OF TRANSPORTATION TO LEAVE WILL BE HERE AROUND 1200.
[2018-12-01 10:39] VITALS: BP 149/55
--- NOTE | 2018-12-01 10:52 | NUR ---
ON-GOING ASSESSMENT: PT HAS ORDERS TO DISCHARGE HOME WITH HH TODAY. PT CHOSE [facility] SHE HAD THEM IN THE PAST. CM SPOKE WITH [facility] TO NOTIFY THEM OF DISCHARGE TODAY AND ALSO FAXED ORDERS/CONFIRMATION RECEIVED. PT REPORTS HAVING TRANSPORTATION HOME. PT REPORTS NO FURTHER NEEDS FROM .
[2018-12-01 11:10] VITALS: BP 157/77
--- NOTE | 2018-12-02 13:15 | D ---
[facility] [place] [address] DISCHARGE SUMMARY Name: CHAD DE LOS SANTOS Room #: 360-P [facility] IN M.R.#: [id number] Admission: 11/24/18 Attend Phys: Familia Navarrete MD Discharge: 12/01/18 Date of : 34 Report #: [id number] THIS REPORT FOR: //name// CC: Familia Navarrete DATE OF SERVICE: 12/01/2018 FINAL DIAGNOSES: 1. Chronic obstructive pulmonary disease exacerbation. 2. Hypertension. HOSPITAL COURSE: The patient was admitted with shortness of breath. Working diagnosis was suggestion of pneumonia; however, she really had no other clinical symptoms of high fever, productive sputum, positive cultures or high white count. She was treated for COPD exacerbation with antibiotics, steroids, nebulized treatments. Her blood pressure was elevated and I thought this was related to Solu-Medrol, which was discontinued and her medications were increased. She was participating with physical therapy, her symptoms improved and she was weaned off oxygen. PHYSICAL EXAMINATION: VITAL SIGNS: On the day of discharge, temperature was 36.4, pulse 72, respirations 18, blood pressure was ranging 148/63, 154/53 to 183/79. O2 sat 95% on room air. LUNGS: Clear. HEART: Regular. ABDOMEN: Soft, normoactive bowel sounds. EXTREMITIES: Showed no edema. DISPOSITION: She will be discharged to home with diet and activity as tolerated. Home medicines will resume, all nebulized treatments, Advair, aspirin and Lopressor 100 mg twice a day, amlodipine 10 mg a day, Ceftin 100 mg a day, losartan 100 mg a day. She is to discontinue prednisone, Zithromax and metoprolol. Followup with Dr. Navarrete in 1 week. <ELECTRONICALLY SIGNED> By: Parviz Bateman MD 12/02/18 1315 0837 1408 Parviz Bateman MD /nt
== END 2018-12-01 13:16 | disposition home health service (06) | DRG 194 ==
LOC: ER 19:19 → 3W 20:19 → EROBS 20:19 → 3W 21:04 → ENTRNSPT 12-01 12:36 → EDTRNSPTSTS 12-01 12:39 → 3W 12-01 13:16
PROVIDERS: Internal Medicine Geriatric Medicine; Physician Assistant; ADMIT Internal Medicine
DX: J18.1 Lobar pneumonia, unspecified organism (principal); R65.10 Systemic inflammatory response syndrome (SIRS) of non-infectious origin without acute organ dysfunction; J44.1 Chronic obstructive pulmonary disease with (acute) exacerbation; R09.02 Hypoxemia; I10 Essential (primary) hypertension; Z66 Do not resuscitate; Z88.8 Allergy status to other drugs, medicaments and biological substances; Z87.891 Personal history of nicotine dependence; Z79.82 Long term (current) use of aspirin; Z79.899 Other long term (current) drug therapy; Z23 Encounter for immunization
CPT/HCPCS: 10879